=== PATIENT | female | born 2000 | race Two or more races ===

== ENCOUNTER 2023-01-07 13:03 | Emergency (ER) | payer OTHER ==
[~2023-01-07] VITALS: Ht 175.3 cm; Wt 55.3 kg
[2023-01-07] MEDS ORDERED: PAXLOVID 300-11 EACH PO (15:57)
== END 2023-01-07 16:57 | disposition home or self-care (01) ==
LOC: ER 13:03
PROVIDERS: General Practice
DX: U07.1 COVID-19 (principal); J45.909 Unspecified asthma, uncomplicated